=== PATIENT | male | born 1955 | race Caucasian/White ===

== ENCOUNTER 2017-03-03 20:28 | Inpatient (IN) | payer OTHER ==
[~2017-03-03] VITALS: Ht 177.8 cm; Wt 59.0 kg
[2017-03-03 22:38] VITALS: BP 155/72; PULSE 97; TEMP 98.4
[2017-03-03 23:26] LABS: HEMATOCRIT 40.9 % (42.0-52.0); HEMOGLOBIN 13.9 g/dl (13.5-18.0); MEAN CELL VOLUME 95 fl (80.0-100.0); MEAN CORPUSCULAR HEMOGLOBIN 32 pg (27.0-31.0); MEAN CORPUSCULAR HGB CONC 34 g/dl (33.0-37.0); MEAN PLATELET VOLUME 10.7 fl (7.4-10.4); PLATELET COUNT 226 K/mm3 (130-400); RED BLOOD COUNT 4.32 M/mm3 (4.20-5.60)
[2017-03-03 23:32] LABS: INR 1.1 (0.8-3.0); PROTHROMBIN TIME 12.2 SECONDS (9.7-12.8)
[2017-03-03 23:36] LABS: ALBUMIN 3.7 gm/dL (3.5-5.0); BILIRUBIN,TOTAL 1.1 mg/dL (0.0-1.0); CREATININE, serum 0.76 mg/dL (0.66-1.25); TOTAL PROTEIN 6.8 gm/dL (6.4-8.2)
[2017-03-03 23:43] LABS: PRE ALBUMIN 32.6 mg/dL (17.6-36.0)
[2017-03-03 23:44] LABS: BAND 9 % (0-10); LYMPHOCYTE 9 % (20.0-51.0); NEUTROPHILS 73 % (42.0-75.2); PLATELET ESTIMATE NORMAL (NORMAL)
[2017-03-04] VITALS (17 sets, daily range): BP systolic 96–150; BP diastolic 58–84; PULSE 65–104; TEMP 97.5–100
[2017-03-04] MEDS ORDERED: ANTACID200 MG PO (03:26)
[2017-03-04] MEDS ORDERED: CALCIUM GLUCON500 MG PO (03:27)
[2017-03-04] MEDS ORDERED: VITAMIN D 400400 IU PO (03:28)
[2017-03-04] MEDS ORDERED: MULTI VITAMINS1 TAB PO (03:28)
[2017-03-04] MEDS ORDERED: NATURE'S BLEND100 M2 PO (03:29)
[2017-03-05] VITALS (10 sets, daily range): BP systolic 122–143; BP diastolic 52–75; PULSE 79–103; TEMP 97.8–99.7
[2017-03-05 06:39] LABS: HEMATOCRIT 30.9 % (42.0-52.0); HEMOGLOBIN 10.5 g/dl (13.5-18.0)
[2017-03-05 06:50] LABS: INR 1.1 (0.8-3.0); PROTHROMBIN TIME 13.3 SECONDS (9.7-12.8)
[2017-03-05 06:56] LABS: CALCIUM 8.5 mg/dL (8.4-10.2); CREATININE, serum 0.79 mg/dL (0.66-1.25)
[2017-03-05 13:30] LABS: MEAN CELL VOLUME 98 fl (80.0-100.0); MEAN CORPUSCULAR HGB CONC 33 g/dl (33.0-37.0); MEAN PLATELET VOLUME 12.1 fl (7.4-10.4); PLATELET COUNT 167 K/mm3 (130-400); RED BLOOD COUNT 3.22 M/mm3 (4.20-5.60); REDCELL DISTRIBUTION WIDTH-CV 14.3 % (11.5-14.5)
[2017-03-05 13:31] LABS: HEMATOCRIT 31.6 % (42.0-52.0); HEMOGLOBIN 10.4 g/dl (13.5-18.0); MEAN CORPUSCULAR HEMOGLOBIN 32 pg (27.0-31.0)
[2017-03-05 13:54] LABS: BAND 24 % (0-10); EOSINOPHIL 2 % (0-4); LYMPHOCYTE 5 % (20.0-51.0); NEUTROPHILS 56 % (42.0-75.2); PLATELET ESTIMATE NORMAL (NORMAL)
[2017-03-05 14:15] LABS: COLLECTION METHOD CLEAN CATCH
[2017-03-05 14:24] LABS: MUCOUS Present /lpf; PH 7 (5-8); SQUAMOUS EPITHELIAL None Seen /hpf; URINE APPEARANCE Clear; URINE BACTERIA None Seen /hpf; URINE BILIRUBIN Negative (NEGATIVE); URINE BLOOD 2+ (NEGATIVE); URINE COLOR Straw; URINE GLUCOSE Negative (NEGATIVE); URINE KETONE Negative (NEGATIVE); URINE LEUKOCYTE ESTERASE Negative (NEGATIVE); URINE NITRATE Negative (NEGATIVE); URINE PROTEIN(semi-quant) Negative (NEGATIVE); URINE RBC 0-2 /hpf; URINE UROBILINOGEN Negative (NEGATIVE)
[2017-03-06] VITALS (7 sets, daily range): BP systolic 124–150; BP diastolic 58–74; PULSE 85–107; TEMP 97.4–99.8
[2017-03-06 06:28] LABS: MEAN CELL VOLUME 96 fl (80.0-100.0); MEAN CORPUSCULAR HGB CONC 34 g/dl (33.0-37.0); PLATELET COUNT 191 K/mm3 (130-400); RED BLOOD COUNT 3.22 M/mm3 (4.20-5.60); REDCELL DISTRIBUTION WIDTH-CV 13.7 % (11.5-14.5)
[2017-03-06 06:32] LABS: HEMOGLOBIN 10.5 g/dl (13.5-18.0); MEAN CORPUSCULAR HEMOGLOBIN 33 pg (27.0-31.0)
[2017-03-06 06:37] LABS: INR 1.1 (0.8-3.0); PROTHROMBIN TIME 12.4 SECONDS (9.7-12.8)
[2017-03-06 06:43] LABS: CALCIUM 8.9 mg/dL (8.4-10.2); CREATININE, serum 0.77 mg/dL (0.66-1.25); POTASSIUM 3.6 mmol/L (3.4-5.0)
[2017-03-06 07:26] LABS: BAND 32 % (0-10); BASOPHIL 1 % (0-2); LYMPHOCYTE 20 % (20.0-51.0); NEUTROPHILS 47 % (42.0-75.2); PLATELET ESTIMATE NORMAL (NORMAL)
[2017-03-07] VITALS: BP 137/56; PULSE 98; TEMP 98.6
[2017-03-07 00:04] LABS: FOLATE (FOLIC ACID) 4.6 ng/mL (7.0-31.4)
[2017-03-07 02:16] VITALS: BP 137/56; PULSE 98; TEMP 98.6
[2017-03-07 05:52] VITALS: BP 152/83; PULSE 70; TEMP 98.5
[2017-03-07 07:12] LABS: BASO % 0.4 % (0.0-2.0); EOS # 0.3 (0.0-0.7); EOS % 3.5 % (0-4.0); GRAN # 5.8 (1.4-6.5); GRAN % 64.3 % (42.2-75.2); LYMPH # 1.5 (1.2-3.4); LYMPH % 16.5 % (20.0-51.0); MEAN CELL VOLUME 98 fl (80.0-100.0); MEAN CORPUSCULAR HGB CONC 33 g/dl (33.0-37.0); MEAN PLATELET VOLUME 11.9 fl (7.4-10.4); MONO # 1.3 (0.1-0.6); MONO % 14.7 % (1.7-9.3); PLATELET COUNT 218 K/mm3 (130-400); RED BLOOD COUNT 2.88 M/mm3 (4.20-5.60); REDCELL DISTRIBUTION WIDTH-CV 13.6 % (11.5-14.5)
[2017-03-07 07:15] LABS: PROTHROMBIN TIME 11.8 SECONDS (9.7-12.8)
[2017-03-07 07:26] LABS: CALCIUM 8.4 mg/dL (8.4-10.2); CREATININE, serum 0.74 mg/dL (0.66-1.25); MAGNESIUM 2.2 mg/dL (1.6-2.3); POTASSIUM 3.8 mmol/L (3.4-5.0)
[2017-03-07 07:42] LABS: HEMATOCRIT 28.1 % (42.0-52.0); HEMOGLOBIN 9.3 g/dl (13.5-18.0); MEAN CORPUSCULAR HEMOGLOBIN 32 pg (27.0-31.0)
[2017-03-07 07:51] VITALS: BP 161/68; PULSE 104; TEMP 98.3
[2017-03-07] MEDS ORDERED: ASPI325T6 PO (09:28)
[2017-03-07] MEDS ORDERED: ROXICODONE 55 MG/TAB PO (09:29)
[2017-03-07] MEDS ORDERED: TYLENOL 325MG325 MG PO (09:29)
[2017-03-07] MEDS ORDERED: THIAMINE 1100 MG/TAB PO (09:30)
[2017-03-07] MEDS ORDERED: CYANOCOBAL1000 MCG/M IM (09:30)
[2017-03-07] MEDS ORDERED: FOLIC ACID 11 MG/TA1 PO (09:30)
[2017-03-07] MEDS ORDERED: SENOKOT S 50 MG1 TAB PO (09:31)
[2017-03-07] MEDS ORDERED: ROCEPHIN VIA1 G/VIAL IV (10:48)
[2017-03-07] MEDS ORDERED: COREG 6.256.25 MG/TA PO (10:49)
[2017-03-07 13:35] VITALS: BP 134/73; PULSE 103; TEMP 99.2
[2017-03-07] MEDS ORDERED: CLARITIN 1010 MG/TAB PO (16:05)
[2017-03-07] MEDS ORDERED: GOOD NEIGH1200 MG/15 PO (16:07)
[2017-03-07] MEDS ORDERED: LIQUIFILM TEARS15 ML OU (16:10)
[2017-03-07] MEDS ORDERED: ASPIRIN 32325 MG/TAB PO ×2 (16:11)
== END 2017-03-07 15:43 | DRG 480 ==
LOC: JCC 20:28
PROVIDERS: Nurse Practitioner Family; Orthopaedic Surgery; Physician Assistant
PROC: 0QH706Z Insertion of Intramedullary Internal Fixation Device into Left Upper Femur, Open Approach (ICD-10-PCS; principal; 2017-03-04 09:00)
DX: S72.142A Displaced intertrochanteric fracture of left femur, initial encounter for closed fracture (principal); E43 Unspecified severe protein-calorie malnutrition; Z68.1 Body mass index [BMI] 19.9 or less, adult; N39.0 Urinary tract infection, site not specified; E87.1 Hypo-osmolality and hyponatremia; W18.30XA Fall on same level, unspecified, initial encounter; F10.10 Alcohol abuse, uncomplicated; F17.210 Nicotine dependence, cigarettes, uncomplicated; G62.1 Alcoholic polyneuropathy; I10 Essential (primary) hypertension
CPT/HCPCS: 99232-AI; 99233-AI; 99239; A9284; C1713; J0690; J0696; J2250; J2270; J2405; J2704; J3010; J3411; J3420; J7030; J7040; J7120; J7121

== ENCOUNTER 2017-03-07 12:24 | Inpatient (IN) | payer OTHER ==
[~2017-03-07] VITALS: Ht 177.8 cm; Wt 52.0 kg
[~2017-03-07 12:24] MED LIST: ANTACID200 MG PO; ASPI325T6 PO; CALCIUM GLUCON500 MG PO; COREG 6.256.25 MG/TA PO; CYANOCOBAL1000 MCG/M IM; FOLIC ACID 11 MG/TA1 PO; MULTI VITAMINS1 TAB PO; NATURE'S BLEND100 M2 PO; ROCEPHIN VIA1 G/VIAL IV; ROXICODONE 55 MG/TAB PO; SENOKOT S 50 MG1 TAB PO; THIAMINE 1100 MG/TAB PO; TYLENOL 325MG325 MG PO; VITAMIN D 400400 IU PO
[2017-03-07] MEDS ORDERED: CLARITIN 1010 MG/TAB PO (16:05)
[2017-03-07] MEDS ORDERED: GOOD NEIGH1200 MG/15 PO (16:07)
[2017-03-07] MEDS ORDERED: LIQUIFILM TEARS15 ML OU (16:10)
[2017-03-07] MEDS ORDERED: ASPIRIN 32325 MG/TAB PO ×2 (16:11)
[2017-03-08 05:25] VITALS: BP 140/56; PULSE 85; TEMP 99.1
[2017-03-08 18:03] VITALS: BP 154/69; PULSE 75; TEMP 99.1
[2017-03-09 06:32] VITALS: BP 151/81; PULSE 80; TEMP 98.9
[2017-03-09 16:06] VITALS: BP 143/71; PULSE 79; TEMP 98.9
[2017-03-10 06:26] VITALS: BP 148/60; PULSE 81; TEMP 98.6
[2017-03-10 18:10] VITALS: BP 138/58; PULSE 77; TEMP 98.5
[2017-03-11 05:48] VITALS: BP 120/54; PULSE 80; TEMP 97.4
[2017-03-11 06:45] LABS: MEAN CELL VOLUME 96 fl (80.0-100.0); MEAN CORPUSCULAR HGB CONC 33 g/dl (33.0-37.0); PLATELET COUNT 402 K/mm3 (130-400); RED BLOOD COUNT 3.04 M/mm3 (4.20-5.60); REDCELL DISTRIBUTION WIDTH-CV 13.8 % (11.5-14.5)
[2017-03-11 06:46] LABS: HEMATOCRIT 29.3 % (42.0-52.0); HEMOGLOBIN 9.7 g/dl (13.5-18.0); MEAN CORPUSCULAR HEMOGLOBIN 32 pg (27.0-31.0)
[2017-03-11 07:01] LABS: CALCIUM 8.5 mg/dL (8.4-10.2); CREATININE, serum 0.72 mg/dL (0.66-1.25); MAGNESIUM 2.2 mg/dL (1.6-2.3); POTASSIUM 3.8 mmol/L (3.4-5.0)
[2017-03-11 07:54] LABS: BAND 1 % (0-10); EOSINOPHIL 2 % (0-4); LYMPHOCYTE 21 % (20.0-51.0); NEUTROPHILS 61 % (42.0-75.2); PLATELET ESTIMATE INCREASED (NORMAL)
[2017-03-11 07:55] LABS: HYPOCHROMIA 1+
[2017-03-11 16:18] VITALS: BP 131/60; PULSE 71; TEMP 97.7
[2017-03-12 06:00] VITALS: BP 146/54; PULSE 65; TEMP 99.1
[2017-03-12 18:44] VITALS: BP 134/61; PULSE 63; TEMP 98.5
[2017-03-13 04:51] VITALS: BP 152/68; PULSE 74; PULSE 86; TEMP 97.7
[2017-03-13 18:24] VITALS: BP 129/64; PULSE 74; TEMP 98.5
[2017-03-14 04:42] VITALS: BP 140/64; PULSE 63; TEMP 98.5
[2017-03-14 17:13] VITALS: BP 126/57; PULSE 67; TEMP 98.5
[2017-03-15 04:16] VITALS: BP 156/84; PULSE 79; TEMP 97.4
[2017-03-15 15:33] VITALS: BP 161/69; PULSE 64; TEMP 97.7
[2017-03-16 05:51] VITALS: BP 123/62; PULSE 57; TEMP 97.6
[2017-03-16 17:26] VITALS: BP 156/70; PULSE 95
[2017-03-17 06:01] VITALS: BP 141/69; PULSE 59; TEMP 98.1
[2017-03-17 17:30] VITALS: BP 131/75; PULSE 71; TEMP 98.7
[2017-03-18 05:25] VITALS: BP 126/50; PULSE 64; TEMP 98.2
[2017-03-18 06:53] LABS: BASO # 0.1 (0.0-0.2); BASO % 0.6 % (0.0-2.0); EOS # 0.3 (0.0-0.7); GRAN # 7.1 (1.4-6.5); GRAN % 65.2 % (42.2-75.2); HEMATOCRIT 35.4 % (42.0-52.0); HEMOGLOBIN 11.1 g/dl (13.5-18.0); LYMPH # 2.4 (1.2-3.4); LYMPH % 22.2 % (20.0-51.0); MEAN CELL VOLUME 97 fl (80.0-100.0); MEAN CORPUSCULAR HEMOGLOBIN 30 pg (27.0-31.0); MEAN CORPUSCULAR HGB CONC 31 g/dl (33.0-37.0); MEAN PLATELET VOLUME 10.3 fl (7.4-10.4); MONO # 0.9 (0.1-0.6); MONO % 8.4 % (1.7-9.3); PLATELET COUNT 633 K/mm3 (130-400); RED BLOOD COUNT 3.65 M/mm3 (4.20-5.60)
[2017-03-18 07:03] LABS: CALCIUM 9.2 mg/dL (8.4-10.2); CREATININE, serum 0.87 mg/dL (0.66-1.25); MAGNESIUM 2.1 mg/dL (1.6-2.3); POTASSIUM 4.1 mmol/L (3.4-5.0)
[2017-03-18 16:23] VITALS: BP 126/69; PULSE 83; TEMP 99.2
[2017-03-19 06:36] VITALS: BP 149/70; PULSE 66; TEMP 97.8
[2017-03-19 16:49] VITALS: BP 143/69; PULSE 63; TEMP 98.6
[2017-03-20 06:14] VITALS: BP 111/51; PULSE 69; TEMP 98.4
[2017-03-20 17:55] VITALS: BP 147/74; PULSE 84; TEMP 98.8
[2017-03-21 03:59] VITALS: BP 100/53; PULSE 66; TEMP 97.3
[2017-03-21 09:25] VITALS: BP 120/62
[2017-03-21 15:40] VITALS: BP 122/65; PULSE 57; TEMP 98.3
[2017-03-22 05:47] VITALS: BP 126/59; PULSE 61; TEMP 98
[2017-03-22] MEDS ORDERED: COREG 6.256.25 MG/TA PO (07:31)
[2017-03-22] MEDS ORDERED: TRIAM OI 0.1 454 TP (07:32)
[2017-03-22] MEDS ORDERED: ZESTRIL 5MG5 MG PO (07:32)
[2017-03-22] MEDS ORDERED: ROXICODONE 55 MG/TAB PO (07:34)
[2017-03-22 16:32] VITALS: BP 143/70; PULSE 84; TEMP 98.3
[2017-03-23 06:01] VITALS: BP 122/67; PULSE 62; TEMP 98.6
[2017-03-23 17:11] VITALS: BP 131/70; PULSE 68
[2017-03-24 04:08] VITALS: BP 147/69; PULSE 60; TEMP 97.3
[2017-03-24 16:09] VITALS: BP 128/81; PULSE 87; TEMP 98.1
[2017-03-25 05:48] VITALS: BP 89/51; PULSE 73; TEMP 99
[2017-03-25 08:18] VITALS: BP 122/58; PULSE 89; TEMP 98.1
[2017-03-25 16:23] VITALS: BP 129/69; PULSE 78; TEMP 97.8
[2017-03-26 06:21] VITALS: BP 130/71; PULSE 82; TEMP 98.4
[2017-03-26 18:30] VITALS: BP 126/74; PULSE 86; TEMP 98.7
[2017-03-27 06:20] VITALS: BP 137/56; BP 156/82; PULSE 72; PULSE 90; TEMP 98.1; TEMP 99.9
[2017-03-27 12:33] LABS: BASO # 0.1 (0.0-0.2); BASO % 0.7 % (0.0-2.0); EOS # 0.3 (0.0-0.7); EOS % 3.1 % (0-4.0); GRAN # 6.9 (1.4-6.5); GRAN % 66.5 % (42.2-75.2); LYMPH # 1.8 (1.2-3.4); MEAN CELL VOLUME 93 fl (80.0-100.0); MEAN CORPUSCULAR HGB CONC 32 g/dl (33.0-37.0); MEAN PLATELET VOLUME 10.9 fl (7.4-10.4); MONO # 1.3 (0.1-0.6); MONO % 12.4 % (1.7-9.3); PLATELET COUNT 359 K/mm3 (130-400); RED BLOOD COUNT 3.96 M/mm3 (4.20-5.60); REDCELL DISTRIBUTION WIDTH-CV 13.6 % (11.5-14.5)
[2017-03-27 12:37] LABS: HEMATOCRIT 36.9 % (42.0-52.0); HEMOGLOBIN 11.9 g/dl (13.5-18.0); MEAN CORPUSCULAR HEMOGLOBIN 30 pg (27.0-31.0)
[2017-03-27 12:40] LABS: CALCIUM 9.3 mg/dL (8.4-10.2); CREATININE, serum 0.72 mg/dL (0.66-1.25); POTASSIUM 3.9 mmol/L (3.4-5.0)
[2017-03-27 18:45] VITALS: BP 144/72; PULSE 79; TEMP 98.6
[2017-03-28 05:47] VITALS: BP 173/81; PULSE 86; TEMP 98.5
[2017-03-28 17:58] VITALS: BP 165/72; PULSE 73; TEMP 98
[2017-03-29 04:02] VITALS: BP 116/63; PULSE 67; TEMP 97.4
[2017-03-29 18:00] VITALS: BP 125/66; PULSE 77; TEMP 99.1
[2017-03-30 04:43] VITALS: BP 114/64; PULSE 65; TEMP 98
[2017-03-30 09:22] VITALS: BP 136/64
[2017-03-30 16:44] VITALS: BP 103/59; PULSE 67; TEMP 98.7
[2017-03-31 04:33] VITALS: BP 122/73; PULSE 75; TEMP 98.5
[2017-03-31 16:10] VITALS: BP 129/68; PULSE 74; TEMP 98.9
[2017-04-01 04:01] VITALS: BP 150/74; PULSE 54; TEMP 98.5
[2017-04-01 15:12] VITALS: BP 125/72; PULSE 70; TEMP 97
[2017-04-02 04:53] VITALS: BP 130/81; PULSE 56; TEMP 98.8
[2017-04-02] MEDS ORDERED: MIRTAZAPINE7.5 MG PO (11:36)
[2017-04-02 18:00] VITALS: BP 115/66; PULSE 79; TEMP 100
[2017-04-02 19:40] VITALS: TEMP 98.7
[2017-04-03 02:33] VITALS: BP 149/66; PULSE 58; TEMP 98.7
== END 2017-04-03 08:09 | disposition home or self-care (01) | DRG 559 ==
PROVIDERS: Internal Medicine
DX: S72.142D Displaced intertrochanteric fracture of left femur, subsequent encounter for closed fracture with routine healing (principal); E43 Unspecified severe protein-calorie malnutrition; Z68.1 Body mass index [BMI] 19.9 or less, adult; N39.0 Urinary tract infection, site not specified; E87.1 Hypo-osmolality and hyponatremia; W18.30XD Fall on same level, unspecified, subsequent encounter; F17.210 Nicotine dependence, cigarettes, uncomplicated; G62.1 Alcoholic polyneuropathy; I10 Essential (primary) hypertension; R47.1 Dysarthria and anarthria; R13.10 Dysphagia, unspecified; F43.21 Adjustment disorder with depressed mood; F10.10 Alcohol abuse, uncomplicated
CPT/HCPCS: 99222-AI; 99232-AI; 99239; J0696; J3420